=== PATIENT | male | born 1945 | race Two or more races ===

== ENCOUNTER 2018-03-18 10:14 | Day surgery (SDC) | payer MEDICARE, OTHER ==
[~2018-03-18 10:14] MED LIST: CEFAZOLIN 2 GM/50 ML (PMX) 50 ML IVPB
== END 2018-03-18 11:00 | disposition home or self-care (01) ==
LOC: SDS 10:14
DX: I73.9 Peripheral vascular disease, unspecified (principal); Z53.9 Procedure and treatment not carried out, unspecified reason; I25.10 Atherosclerotic heart disease of native coronary artery without angina pectoris; I50.22 Chronic systolic (congestive) heart failure; I10 Essential (primary) hypertension; E11.9 Type 2 diabetes mellitus without complications
CPT/HCPCS: 82962

== ENCOUNTER 2018-04-01 06:03 | Day surgery (SDC) | payer MEDICARE, OTHER ==
[2018-04-01] MEDS ORDERED: BUPIVACAINE 0.5% (SDV) 30 ML INJ (06:50)
[2018-04-01] MEDS ORDERED: SUCCINYLCHOLINE CHLORIDE 100 MG/5 ML SYG IV (07:00)
[2018-04-01] MEDS ORDERED: POLYMYXIN B 500000 UNIT INJ (07:12)
[2018-04-01] MEDS ORDERED: BACITRACIN 50000 UNITS INJ (07:21)
[2018-04-01] MEDS: POLYMYXIN/BACITRACIN 1L IRRIG IRR (07:30)
[2018-04-01] MEDS ORDERED: FENTAnyl 50 MCG/ML VIAL (07:35)
[2018-04-01] MEDS ORDERED: ETOMIDATE 20 MG INJ (07:35)
[2018-04-01] MEDS ORDERED: ROCURONIUM 50 MG INJ (07:35)
[2018-04-01] MEDS ORDERED: ONDANSETRON 4 MG INJ (07:51)
[2018-04-01] MEDS ORDERED: CEFAZOLIN 1 GM INJ (07:51)
[2018-04-01] MEDS ORDERED: DEXAMETHASONE 4 MG/ML 1 ML INJ (07:52)
[2018-04-01] MEDS ORDERED: FAMOTIDINE 20 MG INJ (07:52)
[2018-04-01] MEDS ORDERED: PHENYLephrine (100 MCG/ML) 5ML SYG (07:58)
[2018-04-01] MEDS ORDERED: SUGAMMADEX SODIUM 200 MG/2 ML VIAL IV (08:42)
[2018-04-01] MEDS ORDERED: HYDROCODONE/APAP (10/325) TAB PO (09:00)
[2018-04-01] MEDS ORDERED: ONDANSETRON (ODT) 4 MG TAB ODT (09:00)
[2018-04-01] MEDS: HYDROmorphONE (0.2 MG/ML) 10ML SYG IV ×2 (09:23→09:29)
== END 2018-04-01 11:14 ==
LOC: SDS 06:03
DX: E11.621 Type 2 diabetes mellitus with foot ulcer (principal); L97.413 Non-pressure chronic ulcer of right heel and midfoot with necrosis of muscle; I10 Essential (primary) hypertension; I73.9 Peripheral vascular disease, unspecified
CPT/HCPCS: 11043; 82962; 87070; 87075; 88304